=== PATIENT | male | born 1960 | race Hispanic/Latino ===

== ENCOUNTER 2018-01-29 | Emergency (ER) | payer SELFPAY ==
--- NOTE | 2018-01-29 16:10 | EDPHYS ---
Physician Documentation [facility] Name: Aaron Santillan Age: 57 yrs Sex: Male : 1960 Arrival Date: 01/29/2018 Time: 14:00 Bed 8 Private MD: ED Physician Clint Carbajal HPI: 01/29 18:54 This 57 yrs old Male presents to ER via Ambulatory with complaints of Urinary kdr Problem. 18:54 The patient presents with urinary symptoms, retention, unable to void. Onset: The kdr symptoms/episode began/occurred gradually, today. Modifying factors: The symptoms are alleviated by nothing, the symptoms are aggravated by pressure. Associated signs and symptoms: The patient has no apparent associated signs or symptoms. Severity of symptoms: At their worst the symptoms were mild, moderate, just prior to arrival, in the emergency department the symptoms are unchanged. The patient has experienced a previous episode. The patient has not recently seen a physician. Historical: - Allergies: 14:03 No Known Allergies; hj - Home Meds: 14:03 unknwon meds for BPH [Active]; hj - PMHx: 14:03 BPH; hj - PSHx: 14:03 None; hj - Immunization history:: Flu vaccine is not up to date. - Social history:: Smoking status: Patient/guardian denies using tobacco. ROS: 18:54 Constitutional: Negative for fever, chills, and weight loss, Eyes: Negative for injury, kdr pain, redness, and discharge, ENT: Negative for injury, pain, and discharge, Neck: Negative for injury, pain, and swelling, Cardiovascular: Negative for chest pain, palpitations, and edema, Respiratory: Negative for shortness of breath, cough, wheezing, and pleuritic chest pain, Abdomen/GI: Negative for abdominal pain, nausea, vomiting, diarrhea, and constipation, Back: Negative for injury and pain, MS/Extremity: Negative for injury and deformity, Skin: Negative for injury, rash, and discoloration, Neuro: Negative for headache, weakness, numbness, tingling, and seizure activity. Psych: Negative for depression, anxiety, suicide ideation, homicidal ideation, and hallucinations, Allergy/Immunology: Negative for hives, rash, and allergies, Endocrine: Negative for neck swelling, polydipsia, polyuria, polyphagia, and marked weight changes, Hematologic/Lymphatic: Negative for swollen nodes, abnormal bleeding, and unusual bruising. 18:54 : Positive for urinary symptoms, Negative for injury or acute deformity, hematuria, pelvic pain, flank pain, burning with urination, difficulty urinating, bladder incontinence, penile discharge, penile pain, testicular pain Exam: 18:54 Constitutional: This is a well developed, well nourished patient who is awake, alert, kdr and in no acute distress. Head/Face: Normocephalic, atraumatic. Eyes: Pupils equal round and reactive to light, extra-ocular motions intact. Lids and lashes normal. Conjunctiva and sclera are non-icteric and not injected. Cornea within normal limits. Periorbital areas with no swelling, redness, or edema. Neck: Trachea midline, no thyromegaly or masses palpated, and no cervical lymphadenopathy. Supple, full range of motion without nuchal rigidity, or vertebral point tenderness. No Meningismus. Chest/axilla: Normal chest wall appearance and motion. Nontender with no deformity. No lesions are appreciated. Cardiovascular: Regular rate and rhythm with a normal S1 and S2. No gallops, murmurs, or rubs. Normal PMI, no JVD. No pulse deficits. Respiratory: Lungs have equal breath sounds bilaterally, clear to auscultation and percussion. No rales, rhonchi or wheezes noted. No increased work of breathing, no retractions or nasal flaring. Abdomen/GI: Soft, non-tender, with normal bowel sounds. No distension or tympany. No guarding or rebound. No evidence of tenderness throughout. Back: No spinal tenderness. No costovertebral tenderness. Full range of motion. Skin: Warm, dry with normal turgor. Normal color with no rashes, no lesions, and no evidence of cellulitis. MS/ Extremity: Pulses equal, no cyanosis. Neurovascular intact. Full, normal range of motion. Neuro: Awake and alert, GCS 15, oriented to person, place, time, and situation. Cranial nerves II-XII grossly intact. Motor strength 5/5 in all extremities. Sensory grossly intact. Cerebellar exam normal. Normal gait. Psych: Awake, alert, with orientation to person, place and time. Behavior, mood, and affect are within normal limits. Vital Signs: 14:04 BP 169 / 92; Pulse 91; Resp 18; Temp 98.1(TE); Pulse Ox 98% on R/A; Weight 95.25 kg; hj Height 5 ft. 9 in. (175.26 cm); 14:04 Body Mass Index 31.01 (95.25 kg, 175.26 cm) MDM: 16:09 Patient medically screened. kdr 18:54 Data reviewed: vital signs, nurses notes. Counseling: I had a detailed discussion with kdr the patient and/or guardian regarding: the historical points, exam findings, and any diagnostic results supporting the discharge/admit diagnosis, the need for outpatient follow up, for definitive care, a urologist. 01/29 14:45 Order name: Bladder Scanner; Complete Time: 14:54 kdr 01/29 15:24 Order name: Ryder; Complete Time: 15:24 ae1 Administered Medications: No medications were administered Disposition: 01/29/18 16:09 Discharged to Home. Impression: Urinary retention, BPH. - Condition is Stable. - Discharge Instructions: Urinary Retention, Acute, Male, [id number]. - Medication Reconciliation Form, Thank You Letter form. - Follow up: Private Physician; When: 2 - 3 days; Reason: If symptoms return, Further diagnostic work-up, Recheck today's complaints, Continuance of care, Re-evaluation by your physician. - Problem is an acute exacerbation. - Symptoms have improved. Signatures: Clint Carbajal MD MD [facility] Adilson Sanchez, SHON RN Avila Lai RN RN ae1
--- NOTE | 2018-01-29 16:10 | ER ---
Nurse's Notes [facility] Name: Aaron Santillan Age: 57 yrs Sex: Male : 1960 Arrival Date: 01/29/2018 Time: 14:00 Bed 8 Private MD: Diagnosis: Urinary retention, BPH Presentation: 01/29 14:01 Presenting complaint: Patient states: ivan been trying to use the rest room today but hj couldn't pee; reports enlarged prostate;. Transition of care: patient was not received from another setting of care. Onset of symptoms was January 29, 2018. Care prior to arrival: None. 14:01 Method Of Arrival: Ambulatory hj 14:01 Acuity: VALENTIN 3 hj Triage Assessment: 14:03 General: Appears in no apparent distress. uncomfortable, Behavior is calm, cooperative, hj appropriate for age. Pain: Complains of pain in pelvis. Historical: - Allergies: 14:03 No Known Allergies; hj - Home Meds: 14:03 unknwon meds for BPH [Active]; hj - PMHx: 14:03 BPH; hj - PSHx: 14:03 None; hj - Immunization history:: Flu vaccine is not up to date. - Social history:: Smoking status: Patient/guardian denies using tobacco. Screenin:00 Abuse screen: Denies threats or abuse. Nutritional screening: No deficits noted. ae1 Tuberculosis screening: No symptoms or risk factors identified. Fall Risk None identified. Assessment: 14:57 General: Appears in no apparent distress. uncomfortable, obese, Behavior is calm, ae1 cooperative. Pain: Complains of pain in suprapubic area. Neuro: Level of Consciousness is awake, alert, obeys commands, Oriented to person, place, time, situation. Cardiovascular: Heart tones S1 S2 present Patient's skin is warm and dry. Respiratory: Airway is patent. GI: Abdomen is round distended, obese. : No signs and/or symptoms were reported regarding the genitourinary system. : Reports inability to void, Patient states he has not been able to urinate since about 0300 this morning. Patient states this has happened to him before and he has had to have a catheter in place to drain urine. EENT: No signs and/or symptoms were reported regarding the EENT system. Derm: Skin is normal. Musculoskeletal: No signs and/or symptoms reported regarding the musculoskeletal system. 15:14 Reassessment: Patient up to bathroom to attempt to urinate prior to Ryder insertion. ae1 15:30 Reassessment: Patient states he feels much relief Patient states feeling better. ae1 Patient states symptoms have improved. Vital Signs: 14:04 BP 169 / 92; Pulse 91; Resp 18; Temp 98.1(TE); Pulse Ox 98% on R/A; Weight 95.25 kg; hj Height 5 ft. 9 in. (175.26 cm); 14:04 Body Mass Index 31.01 (95.25 kg, 175.26 cm) hj ED Course: 14:00 Patient arrived in ED. tw3 14:02 Triage completed. hj 14:04 Arm band placed on right wrist. hj 14:37 Clint Carbajal MD is Attending Physician. kdr 14:39 Avila Lai, RN is Primary Nurse. ae1 14:54 Bladder scan completed. 499 mls. ae1 15:00 Bed in low position. Call light in reach. Side rails up X 1. Adult w/ patient. Pulse ox ae1 on. NIBP on. 15:24 Ryder cath inserted, using sterile technique, 16 Fr., by mo, balloon inflated, to ae1 gravity drainage, urine specimen collected. other 1000 mls blake urine returned blake urine. Patient tolerated well. 16:26 No provider procedures requiring assistance completed. Patient did not have IV access ae1 during this emergency room visit. Administered Medications: No medications were administered Outcome: 16:09 Discharge ordered by . kdr 16:27 Discharged to home ambulatory, with family. ae1 16:27 Condition: stable 16:27 Discharge instructions given to patient, Instructed on discharge instructions, follow up and referral plans. Demonstrated understanding of instructions. 16:27 Patient left the ED. ae1 Signatures: Clint Carbajal MD MD [facility] Adilson Sanchez RN RN Avila Lai, SHON RN ae1 Elisabet Donaldson tw3 Corrections: (The following items were deleted from the chart) 14:05 14:04 Pulse 91bpm; Resp 18bpm; Pulse Ox 98% RA; Temp 98.1F Temporal; 95.25 kg; Height 5 hj ft. 9 in.; BMI: 31.0; hj
== END 2018-01-29 16:27 | disposition home or self-care (01) ==
DX: N40.0 Benign prostatic hyperplasia without lower urinary tract symptoms (principal)
CPT/HCPCS: 51702; 99284

== ENCOUNTER 2018-02-02 06:36 | Emergency (ER) | payer SELFPAY ==
--- NOTE | 2018-02-02 07:51 | ER ---
Nurse's Notes [facility] Name: Mikhail Lopez Age: 57 yrs Sex: Male : 1960 Arrival Date: 02/02/2018 Time: 06:37 Bed 20 Private MD: Diagnosis: Retention of urine Presentation: 02/02 06:40 Presenting complaint: Patient states: that he has not urinated since last night. Denies fc any pain. Transition of care: patient was not received from another setting of care. Onset of symptoms was February 02, 2018. Initial Sepsis Screen: Does the patient meet any 2 criteria? No. Patient's initial sepsis screen is negative. Does the patient have a suspected source of infection? No. Patient's initial sepsis screen is negative. Care prior to arrival: None. 06:40 Method Of Arrival: Ambulatory 06:40 Acuity: VALENTIN 3 Triage Assessment: 06:50 General: Appears comfortable, Behavior is calm, cooperative, appropriate for age. Pain: fc Denies pain. EENT: No deficits noted. Neuro: Level of Consciousness is awake, alert, obeys commands, Oriented to person, place, time, situation. Cardiovascular: No deficits noted. Respiratory: No deficits noted. GI: No deficits noted. : Reports inability to void, since last night. Derm: Skin is pink, warm \T\ dry. Musculoskeletal: Circulation, motion, and sensation intact. Capillary refill < 3 seconds, Range of motion: intact in all extremities. Historical: - Allergies: 07:06 No Known Allergies; fc - Home Meds: 07:06 unknwon meds for BPH [Active]; fc - PMHx: 07:06 BPH; fc - PSHx: 07:06 None; fc - Immunization history:: Last tetanus immunization: unknown. - Social history:: Smoking status: Patient/guardian denies using tobacco. Screenin:50 Abuse screen: Denies threats or abuse. Nutritional screening: No deficits noted. fc Tuberculosis screening: No symptoms or risk factors identified. Fall Risk None identified. Assessment: 07:06 Reassessment: Report given to SHON Wylie. bs1 07:17 General: Appears in no apparent distress. uncomfortable, Behavior is calm, cooperative. ae1 Pain: Complains of pain in suprapubic area. Neuro: Level of Consciousness is awake, alert, obeys commands, Oriented to person, place, time, situation. Cardiovascular: Patient's skin is warm and dry. Respiratory: Airway is patent Respiratory effort is even, unlabored, Respiratory pattern is regular, symmetrical. GI: No signs and/or symptoms were reported involving the gastrointestinal system. Abdomen is round distended. : Reports inability to void. EENT: No signs and/or symptoms were reported regarding the EENT system. Derm: Skin is normal. Musculoskeletal: No signs and/or symptoms reported regarding the musculoskeletal system. 07:35 Reassessment: Patient states feeling better. Patient states symptoms have improved. ae1 Vital Signs: 06:40 Weight 95.25 kg (R); Height 5 ft. 8 in. (172.72 cm) (R); Pain 0/10; fc 06:45 BP 165 / 94; Pulse 68; Resp 16; Temp 98(O); Pulse Ox 100% on R/A; Pain 6/10; bs1 07:15 BP 119 / 76; Pulse 56; Resp 16; Pulse Ox 98% ; mh5 06:40 Body Mass Index 31.93 (95.25 kg, 172.72 cm) ED Course: 06:37 Patient arrived in ED. am2 06:40 Arm band placed on Patient placed in an exam room, on a stretcher. fc 06:49 Triage completed. fc 06:50 Patient has correct armband on for positive identification. Placed in gown. Bed in low fc position. Call light in reach. 06:50 No provider procedures requiring assistance completed. fc 06:51 [facility] jr8 06:51 Tio Dill MD is Attending Physician. jr8 06:57 Bladder scan completed. 495, informed OLGA Orozco. bs1 06:59 Lesvia Esquivel, SHON is Primary Nurse. bs1 07:16 Avila Lai, SHON is Primary Nurse. ae1 07:34 Ryder cath inserted, using sterile technique, 16 Fr., by pa, balloon inflated, to ae1 gravity drainage, urine specimen collected. other one liter blake urine. 08:12 Leg bag instructed on use . mh5 08:17 Patient did not have IV access during this emergency room visit. ae1 Administered Medications: No medications were administered Outcome: 07:50 Discharge ordered by . jr8 08:17 Discharged to home ambulatory, with family. ae1 08:17 Condition: stable 08:17 Discharge instructions given to patient, Instructed on discharge instructions, follow up and referral plans. medication usage, Demonstrated understanding of instructions. 08:18 Patient left the ED. ae1 Signatures: Dali Brambila, RN RN Kaz Moran PA PA jr8 Avila Lai RN RN ae1 Cherelle Amaya [facility] Wendy Boyer Lesvia Morrison RN RN bs1
--- NOTE | 2018-02-02 07:51 | EDPHYS ---
Physician Documentation [facility] Name: Mikhail Lopez Age: 57 yrs Sex: Male : 1960 Arrival Date: 02/02/2018 Time: 06:37 Bed 20 Private MD: ED Physician Tio Dill HPI: 02/02 07:03 This 57 yrs old Male presents to ER via Ambulatory with complaints of Urinary jr8 Retention, Urinary Problem. 07:03 The patient presents with urinary symptoms, retention, Last void was yesterday, jr8 approximately 9 hour(s) ago. Onset: The symptoms/episode began/occurred acutely. Modifying factors: The symptoms are alleviated by nothing, the symptoms are aggravated by urinating. Associated signs and symptoms: The patient has no apparent associated signs or symptoms. Severity of symptoms: At their worst the symptoms were moderate, in the emergency department the symptoms are unchanged. The patient has experienced a previous episode. The patient has not recently seen a physician. History of BPH. Sees physicians in [place] but not on any medicine to help with the prostate . Historical: - Allergies: 07:06 No Known Allergies; fc - Home Meds: 07:06 unknwon meds for BPH [Active]; fc - PMHx: 07:06 BPH; fc - PSHx: 07:06 None; fc - Immunization history:: Last tetanus immunization: unknown. - Social history:: Smoking status: Patient/guardian denies using tobacco. ROS: 07:03 Eyes: Negative for injury, pain, redness, and discharge, ENT: Negative for injury, jr8 pain, and discharge, Neck: Negative for injury, pain, and swelling, Cardiovascular: Negative for chest pain, palpitations, and edema, Respiratory: Negative for shortness of breath, cough, wheezing, and pleuritic chest pain, Abdomen/GI: Negative for abdominal pain, nausea, vomiting, diarrhea, and constipation, Back: Negative for injury and pain, MS/Extremity: Negative for injury and deformity, Skin: Negative for injury, rash, and discoloration, Neuro: Negative for headache, weakness, numbness, tingling, and seizure. 07:03 : Positive for difficulty urinating, Negative for hematuria, flank pain, burning with urination, penile discharge, penile pain, testicular pain Exam: 07:03 Cardiovascular: Regular rate and rhythm with a normal S1 and S2. No gallops, murmurs, jr8 or rubs. Normal PMI, no JVD. No pulse deficits. Respiratory: Lungs have equal breath sounds bilaterally, clear to auscultation and percussion. No rales, rhonchi or wheezes noted. No increased work of breathing, no retractions or nasal flaring. Abdomen/GI: Soft, non-tender, with normal bowel sounds. No distension or tympany. No guarding or rebound. No evidence of tenderness throughout. Back: No spinal tenderness. No costovertebral tenderness. Full range of motion. MS/ Extremity: Pulses equal, no cyanosis. Neurovascular intact. Full, normal range of motion. Neuro: Awake and alert, GCS 15, oriented to person, place, time, and situation. Cranial nerves II-XII grossly intact. Motor strength 5/5 in all extremities. Sensory grossly intact. Cerebellar exam normal. Normal gait. Vital Signs: 06:40 Weight 95.25 kg (R); Height 5 ft. 8 in. (172.72 cm) (R); Pain 0/10; fc 06:45 BP 165 / 94; Pulse 68; Resp 16; Temp 98(O); Pulse Ox 100% on R/A; Pain 6/10; bs1 07:15 BP 119 / 76; Pulse 56; Resp 16; Pulse Ox 98% ; mh5 06:40 Body Mass Index 31.93 (95.25 kg, 172.72 cm) fc MDM: 06:51 Patient medically screened. jr8 07:03 Data reviewed: vital signs, nurses notes. Data reviewed: lab test result(s). Data jr8 interpreted: Pulse oximetry: on room air is 100 %. Interpretation: normal. 07:48 Counseling: I had a detailed discussion with the patient and/or guardian regarding: the jr8 historical points, exam findings, and any diagnostic results supporting the discharge/admit diagnosis, the need for outpatient follow up, a urologist, to return to the emergency department if symptoms worsen or persist or if there are any questions or concerns that arise at home. Response to treatment: the patient's symptoms have resolved after treatment. 07:48 ED course: Discussed with patient via business development manager that patient needs to continue his jr8 cardura. That he needs to f/u with his urologist to have catheter taken out. To discuss with PCP that the medication is not as affective. Patient understood and would follow up . 02/02 07:33 Order name: Urine Dipstick--Ancillary (enter results) mw2 02/02 07:03 Order name: Ryder Leg Bag; Complete Time: 07:17 jr8 02/02 07:07 Order name: Urine Dipstick-Ancillary (obtain specimen); Complete Time: 07:34 jr8 Administered Medications: No medications were administered Disposition: 19:07 Co-signature as Attending Physician, Kaz montalvo Disposition: 02/02/18 07:50 Discharged to Home. Impression: Retention of urine. - Condition is Stable. - Discharge Instructions: Urinary Retention, Acute, Male. - Medication Reconciliation Form, Thank You Letter, Antibiotic Education, Prescription Opioid Use form. - Follow up: Private Physician; When: 2 - 3 days; Reason: Recheck today's complaints, Continuance of care, Re-evaluation by your physician. - Problem is new. - Symptoms have improved. Signatures: Dispatcher [employer] [facility] Dali Brambila, RN Kaz Bowman PA PA jr8 Avila Lai RN RN ae1 Tio Dill MD MD
[2018-02-02 08:25] LABS: Urine Blood 3+ (NEG); Urine Glucose TRACE (NEG); Urine Protein 1+ (NEG); Urine pH 6.5 (5.0-7.0)
== END 2018-02-02 08:18 | disposition home or self-care (01) ==
LOC: ER 06:36
DX: R33.9 Retention of urine, unspecified (principal); N40.0 Benign prostatic hyperplasia without lower urinary tract symptoms
CPT/HCPCS: 51702; 81003; 99284